=== PATIENT | male | born 1960 | race Two or more races ===

== ENCOUNTER → 2018-12-09 07:00 | Outpatient (CLI) | payer OTHER ==
[~2018-12-09 07:00] MED LIST: LANTUS SOL100 UNIT/1 PO; LANTUS SOL100 UNIT/1 SUBCUTANEO; LOTREL 10-20 M1 EACH PO; METFORMIN HCL1000 M1 PO; TOPROL XL200 MG PO
== END | disposition home or self-care (01) ==
LOC: EKG 07:00 → ADM 11:45 → CIR.AMB 12-11 08:45 → EDSTATUS 12-11 11:45 → CIR.AMB 12-11 11:45
DX: K61.0 Anal abscess (principal); K62.89 Other specified diseases of anus and rectum; Z01.810 Encounter for preprocedural cardiovascular examination; Z01.812 Encounter for preprocedural laboratory examination; Z01.811 Encounter for preprocedural respiratory examination